=== PATIENT | male | born 1940 | race Caucasian/White ===

== ENCOUNTER 2018-02-28 15:58 | Emergency (ER) | payer MEDICARE, MEDICAID ==
[~2018-02-28] VITALS: Wt 57.3 kg
[2018-02-28 16:00] VITALS: BP 136/88
--- NOTE | 2018-02-28 16:25 | ERD ---
ER Documentation Chief Complaint Chief Complaint cough, fever HPI 77-year-old male, with history of diabetes, hypertension and thyroid disease, presents the emergency department, complaining of 4 days with worsening of cough, productive of yellowish sputum, associated with fever, T-max 103, headache and general malaise. The patient denies chest pain, no shortness of breath, no abdominal pain, no urinary symptoms. The patient has been taking iezc-fuw-[id number] medication without improvement of the symptoms. ROS All systems reviewed and are negative except as per history of present illness. Medications Home Meds Active Scripts Albuterol Sulfate* (Proair HFA*) 8.5 Gm Hfa.aer.ad, 2 PUFF INH Q4H PRN for WHEEZING AND SOB, #1 INHALER Prov:MAKAYLA SANCHEZ MD 02/28/18 Azithromycin* (Zithromax*) 250 Mg Tablet, 250 MG PO DAILY for 4 Days, TAB Prov:MAKAYLA SANCHEZ MD 02/28/18 Amoxicillin* (Amoxicillin*) 500 Mg Cap, 500 MG PO TID for 7 Days, CAP Prov:MAKAYLA SANCHEZ MD 02/28/18 Allergies Allergies: Coded Allergies: No Known Allergy (Unverified , 02/28/18) FmHx Family History: diabetes; No coronary disease Physical Exam Vitals Vital Signs Date Temp Pulse Resp B/P (MAP) Pulse Ox O2 O2 Flow FiO2 Time Delivery Rate 02/28/18 100.7 84 20 98 Room Air 18:04 02/28/18 100 20 98 21 17:03 02/28/18 102.3 91 20 136/88 98 16:00 (104) Physical Exam Const: Febrile but no acute distress Head: Atraumatic Eyes: Normal Conjunctiva ENT: Normal External Ears, Nose and Mouth. Neck: Full range of motion. No meningismus. Resp: Diffuse rhonchi to auscultation bilaterally Cardio: Regular rate and rhythm, no murmurs Abd: Soft, non tender, non distended. Normal bowel sounds Skin: No petechiae or rashes Back: No midline or flank tenderness Ext: No cyanosis, or edema Neur: Awake and alert Psych: Normal Mood and Affect Result Diagram: 02/28/18 1640 02/28/18 1640 Results 24 hrs Laboratory Tests Test 02/28/18 16:40 02/28/18 16:41 White Blood Count 5.1 10^3/ul Red Blood Count 4.82 10^6/ul Hemoglobin 14.7 g/dl Hematocrit 43.6 % Mean Corpuscular Volume 90.5 fl Mean Corpuscular Hemoglobin 30.5 pg Mean Corpuscular Hemoglobin Concent 33.7 g/dl Red Cell Distribution Width 13.8 % Platelet Count 225 10^3/UL Mean Platelet Volume 10.0 fl Immature Granulocytes % 0.600 % Neutrophils % 69.2 % Lymphocytes % 20.3 % Monocytes % 8.1 % Eosinophils % 1.2 % Basophils % 0.6 % Nucleated Red Blood Cells % 0.0 /100WBC Immature Granulocytes # 0.030 10^3/ul Neutrophils # 3.5 10^3/ul Lymphocytes # 1.0 10^3/ul Monocytes # 0.4 10^3/ul Eosinophils # 0.1 10^3/ul Basophils # 0.0 10^3/ul Nucleated Red Blood Cells # 0.0 10^3/ul Urine Color YELLOW Urine Clarity CLEAR Urine pH 6.0 Urine Specific Boody 1.015 Urine Ketones NEGATIVE mg/dL Urine Nitrite NEGATIVE mg/dL Urine Bilirubin NEGATIVE mg/dL Urine Urobilinogen NEGATIVE mg/dL Urine Leukocyte Esterase NEGATIVE Ruel/ul Urine Microscopic RBC 6 /HPF Urine Microscopic WBC 1 /HPF Urine Bacteria FEW /HPF Urine Hemoglobin 1+ mg/dL Urine Glucose NEGATIVE mg/dL Urine Total Protein NEGATIVE mg/dl Sodium Level 139 mmol/L Potassium Level 4.0 mmol/L Chloride Level 98 mmol/L Carbon Dioxide Level 30 mmol/L Anion Gap 11 Blood Urea Nitrogen 15 mg/dl Creatinine 1.11 mg/dl Est Glomerular Filtrat Rate mL/min mL/min Glucose Level 95 mg/dl Calcium Level 9.5 mg/dl POC Venous Lactate 1.8 mmol/L Current Medications Medications Dose Sig/Fanny Start Time Status Last (Trade) Ordered Route PRN Stop Time Admin Dose Reason Admin Sodium 1,720 ml BOLUS OVER 2 02/28/18 DC 02/28/18 Chloride HOURS STAT 16:28 02/28/18 17:02 (NS) IV* 16:36 Albuterol 5 mg ONCE STAT 02/28/18 DC 02/28/18 (Proventil HHN 16:28 02/28/18 17:02 0.083% (Neb)) 16:36 Ipratropium 0.5 mg ONCE ONCE 02/28/18 DC 02/28/18 [place]in INH 16:30 02/28/18 17:02 (Atrovent 16:36 0.02% (Neb)) 500 mg ONCE STAT 02/28/18 DC 02/28/18 Azithromycin PO 16:28 02/28/18 17:01 (Zithromax) 16:36 Ceftriaxone 50 ml @ ONCE STAT 02/28/18 DC 02/28/18 Sodium 100 mls/hr IVPB 16:28 02/28/18 17:01 16:57 DIAGNOSTIC IMAGING REPORT Patient: ISAIAH STILES : 1940 Age: 77 Sex: M MR #: [id number] DOS: 02/28/18 1628 Ordering MD: MAKAYLA SANCHEZ MD Location: [facility] Room/Bed: PROCEDURE: XR Chest. CLINICAL INDICATION: Cough. TECHNIQUE: PA and lateral chest x-ray. COMPARISON: None available. FINDINGS: The heart is not enlarged. The lungs are somewhat overinflated. There is no acute infiltrate in the lungs. No focal opacification is seen. No pleural effusion. The visualized surrounding osseous structures are unremarkable. IMPRESSION: 1. Somewhat overinflated lungs.l RPTAT:GG .Derek Ornelas MD, Date Time Electronically viewed and signed by .Derek Ornelas MD, on 02/28/2018 17:08 .Y/ CC: MAKAYLA SANCHEZ MD [id number] EKG read by me: Rate/Rhythm: Regular rate and rhythm at a rate of 80 Intervals: Normal No acute ST changes. No T wave changes Impression: No evidence of acute ischemia or arrhythmia Procedures/MDM Vital signs stable, no respiratory distress. Differential diagnosis include but not limited to: Respiratory infection bacterial/viral/fungal. Croup, bronchiolitis, pneumonitis, allergies, GERD. Less likely foreign body aspiration, cardiac related. Physical examination and clinical presentation consistent most likely with viral infection with early superimposed bacterial infection. During the ED course the patient remained stable, no new complaints. Treatment options and clinical impression discussed with patient who agrees with management. The patient is stable to be treated outpatient and will be discharged home with a Rx for amoxicillin, azithromycin, pro-air and ibuprofen. Some side effects of prescribed medications (headache, rash, nausea, vomiting, diarrhea, interactions with other medications) were reviewed. The patient needs to follow up with the primary care provider in the next 48h. If symptoms persist, worsen or new symptoms develop, then patient should return to the ED immediately. Disclaimer: Inadvertent spelling and grammatical errors are likely due to EHR/dictation software use and do not reflect on the overall quality of patient care. Also, please note that the electronic time recorded on this note does not necessarily reflect the actual time of the patient encounter. Departure Diagnosis: Primary Impression: Cough Additional Impression: Superimposed infection Condition: Stable Additional Instructions: Muchas bernadette por [facility] para valenzuela servicio. Esperamos que en valenzuela visita a la luisa de emergencia valenzuela problema medico haya sido solucionado y que se sienta mucho mejor. Para estar seguros que valenzuela mejoria sigue en proceso, le pedimos el favor de hacer caitlyn freya de seguimiento medico con valenzuela doctor primario en los proximos 2-4 stephens. Lleve con usted estos documentos y las medicinas recetadas. Si royce sintomas empeoran, NO SE ESPERE, por favor regrese a luisa de emergencia INMEDIATAMENTE. En miah que usted no tenga un mdico de atencin primaria: Llame al mdico o clnica comunitaria de referencia que aparece abajo janie las horas de consultorio para hacer caitlyn freya para que le vean. CLINICAS: [facility] [phone] [address] [facility] [phone] [address] [facility] [phone] [address] [facility] [phone] [facility] [phone] [address] [facility]. [phone] MAKAYLA MCDONALD MD Feb 28, 2018 16:25
[2018-02-28] MEDS ORDERED: CEFTRIAXONE 1 GM/50 ML (PMX) 50 ML IVPB STA (16:28)
[2018-02-28] MEDS ORDERED: SODIUM CHLORIDE 0.9% 1L BAG IV* STA (16:28)
[2018-02-28] MEDS ORDERED: ALBUTEROL 0.083% (NEB) 2.5 MG/3 ML AMP HHN STA (16:28)
[2018-02-28] MEDS ORDERED: AZITHROMYCIN 250 MG TAB PO STA (16:28)
[2018-02-28] MEDS ORDERED: IPRATROPIUM (NEB) 0.5 MG/2.5 ML AMP INH ONE (16:30)
[2018-02-28] MEDS ORDERED: AZIT250T PO (17:49)
[2018-02-28] MEDS ORDERED: AMOX500C2 PO (17:49)
[2018-02-28] MEDS ORDERED: ALBU8.5H8 INH (17:59)
[2018-02-28 18:04] VITALS: PULSE 84; RESP 20
== END 2018-02-28 18:05 | disposition home or self-care (01) ==
LOC: FTE 15:58
DX: A49.9 Bacterial infection, unspecified (principal); E11.9 Type 2 diabetes mellitus without complications; I10 Essential (primary) hypertension
CPT/HCPCS: 36415; 71046; 80048; 81001; 83605; 85025; 87040; 87400; 93005; 94664; 96374; 99285; J0696; J7030